=== PATIENT | male | born 1955 | race Caucasian/White ===

== ENCOUNTER 2022-06-19 09:44 | Day surgery (SDC) | payer MEDICARE ==
[2022-06-19] MEDS ORDERED: Lidocaine 1% PF 5 ML VIAL ONE (10:52)
[2022-06-19] MEDS ORDERED: Sodium Bicarbonate 2.5 MEQ/5 ML VIAL ONE (10:52)
[2022-06-19] MEDS ORDERED: Fentanyl 100 MCG/2 ML VIAL ONE (10:57)
[2022-06-19] MEDS ORDERED: Midazolam HCl 5 mg/5 ml Vial ONE (10:57)
[2022-06-19 11:13] LABS: Hemoglobin 5.9 g/dL (13.5-17.5)
[2022-06-19 11:15] LABS: Mean Corpuscular HGB CONC 34.5 g/dL (32.0-36.0); Mean Corpuscular Hemoglobin 37.1 pg (27.0-33.0); Mean Corpuscular Volume 107.5 fl (81.2-95.1); Mean Platelet Volume 11.5 fl (7.4-10.4); Platelet Count 33 10x3/uL (150-450); RBC Distribution Width 19.1 % (11.5-14.5); Red Blood Cell (RBC) Count 1.59 10x6/uL (4.32-5.72); White Blood Cell (WBC) Count 1.3 10x3/uL (3.5-10.5)
[2022-06-19 11:44] LABS: MDiff Complete? YES
[2022-06-19 11:49] LABS: Lymphocytes 92 % (21-51); Monocytes 2 % (0-10); Neutrophil 4 % (42-75); Reactive Lymphocytes 2 % (0-10)
[2022-06-19 11:51] LABS: Anisocytosis MODERATE=16-30 cells (100X) (0-5/hpf); Ovalocytes SLIGHT = 2-5 cells (100X) (0-1/hpf); Platelet Morphology Comment Appears Decreased
[2022-06-19 11:52] LABS: Macrocytosis SLIGHT = 6-15 cells (100X) (0-5/hpf)
[2022-06-19 11:53] LABS: Microcytosis SLIGHT = 6-15 cells (100X) (0-5/hpf)
[2022-06-19 12:57] VITALS: BP 135/62; TEMP 98.2
[2022-06-19] MEDS ORDERED: Acetaminophen 500 MG TAB ONE (13:28)
[2022-06-19] MEDS ORDERED: diphenhydrAMINE 25 MG CAP ONE (13:29)
[2022-06-19 20:04] LABS: #Neutrophils 0.1 10x3/uL (1.5-8.4); %Eosinophils 1.1 % (0.0-6.0); %Monocytes 1.1 % (0.0-10.0); %Neutrophils 3.8 % (40.0-75.0); Hemoglobin 7.6 g/dL (13.5-17.5); Mean Corpuscular HGB CONC 35.2 g/dL (32.0-36.0); Mean Corpuscular Hemoglobin 35.7 pg (27.0-33.0); Mean Corpuscular Volume 101.4 fl (81.2-95.1); Mean Platelet Volume 9.7 fl (7.4-10.4); Platelet Count 29 10x3/uL (150-450); RBC Distribution Width 21.5 % (11.5-14.5); Red Blood Cell (RBC) Count 2.13 10x6/uL (4.32-5.72); White Blood Cell (WBC) Count 1.8 10x3/uL (3.5-10.5)
[2022-06-19 20:32] LABS: Eosinophils 2 % (0-10); Lymphocytes 93 % (21-51); Monocytes 3 % (0-10); Reactive Lymphocytes 1 % (0-10)
[2022-06-19 20:34] LABS: Anisocytosis SLIGHT = 6-15 cells (100X) (0-5/hpf); Ovalocytes SLIGHT = 2-5 cells (100X) (0-1/hpf)
[2022-06-19 20:35] LABS: Platelet Morphology Comment Appears Decreased
== END 2022-06-19 19:30 | disposition home or self-care (01) ==
LOC: CSHCT 09:44
PROVIDERS: ATTEND Internal Medicine
PROC: 079T3ZX Drainage of Bone Marrow, Percutaneous Approach, Diagnostic (ICD-10-PCS; principal; 2022-06-19)
PROC: 07DR0ZX Extraction of Iliac Bone Marrow, Open Approach, Diagnostic (ICD-10-PCS; 2022-06-19)
DX: C92.00 Acute myeloblastic leukemia, not having achieved remission (principal); D61.818 Other pancytopenia; E53.8 Deficiency of other specified B group vitamins; D75.89 Other specified diseases of blood and blood-forming organs; E78.2 Mixed hyperlipidemia; I10 Essential (primary) hypertension; F17.210 Nicotine dependence, cigarettes, uncomplicated; Z79.899 Other long term (current) drug therapy
CPT/HCPCS: 36430; 38222; 85025 ×2; 86850; 86900; 86901; 86920; P9016; 36415; 85097; 88184; 88185; 88237; 88264; 88280; 88305; 88311; 88313; 88341; 88342; 88365; J2250; J3010